=== PATIENT | female | born 1975 | race Caucasian/White ===

== ENCOUNTER 2020-02-05 09:48 | Outpatient (REF) | payer OTHER, SELFPAY | END 2020-02-05 09:49 | disposition home or self-care (01) | LOC: HO.LAB 09:48 | PROVIDERS: PCP Internal Medicine; Visit Provider Internal Medicine | DX: Z20.828 Contact with and (suspected) exposure to other viral communicable diseases (principal) | CPT/HCPCS: 36415; 87635 ==

== ENCOUNTER 2020-09-20 15:47 | Outpatient (REF) | payer OTHER, SELFPAY ==
--- NOTE | ~2020-09-20 | XR_ITS ---
EXAMINATION: XR HIP, RIGHT CLINICAL INFORMATION: Right hip pain COMPARISON: None TECHNIQUE: Two views of the right hip. FINDINGS: Bones and soft tissues are normal. No fracture. Alignment is anatomic. Hip joint space is maintained. XR/XR hip RT min 2V IMPRESSION: Normal right hip.
== END 2020-09-20 15:48 | disposition home or self-care (01) ==
LOC: HO.XRAY 15:47
PROVIDERS: Visit Provider Internal Medicine
DX: M25.551 Pain in right hip (principal)
CPT/HCPCS: 73502

== ENCOUNTER 2023-04-25 15:17 | Outpatient (REF) | payer OTHER, SELFPAY ==
--- NOTE | ~2023-04-25 | US_ITS ---
EXAMINATION: US RETROPERITONEAL COMPLETE (RENAL) CLINICAL INFORMATION: Renal cyst. COMPARISON: None available. TECHNIQUE: Real-time imaging of the kidneys and bladder. FINDINGS: RIGHT KIDNEY: 10.1 x 4.7 x 5.2 cm (SAG x AP x TRV). The kidney is normal in size, contour, and echogenicity. Renal cortical thickness is normal. No renal calculi or hydronephrosis. Question upper pole mass with a faintly echogenic center and thin hypoechoic rim measuring 1.4 x 1.2 x 1.5 cm. LEFT KIDNEY: 10.4 x 4.8 x 5.2 cm (SAG x AP x TRV). The kidney is normal in size, contour, and echogenicity. Renal cortical thickness is normal. No calculi or focal parenchymal lesions. There is slight fullness of a lower pole calyx without flor hydronephrosis. BLADDER: Well distended and normal. Bilateral ureteral jets are demonstrated. Prevoid bladder volume is 163 mL. Postvoid bladder volume is 1.6 mL. ADDITIONAL FINDINGS: A few punctate calcifications within the spleen likely representing calcified granulomas indicative of old granulomatous disease. US/US retroperitoneal comp IMPRESSION: 1. Question of 1.5 cm mass in the upper pole of the right kidney. CT scan is recommended for further evaluation. 2. Slight fullness of a lower pole calyx in the left kidney without flor hydronephrosis. 3. Normal appearance of the bladder. 4. A few punctate calcifications within the spleen likely representing calcified granulomas indicative of old granulomatous disease.
== END 2023-04-25 15:18 | disposition home or self-care (01) ==
LOC: HO.US 15:17
PROVIDERS: PCP Internal Medicine; Visit Provider Internal Medicine
DX: N28.1 Cyst of kidney, acquired (principal)
CPT/HCPCS: 76770

== ENCOUNTER 2023-05-17 15:02 | Outpatient (AMB) | payer OTHER, SELFPAY ==
--- NOTE | 2023-05-17 15:11 | HO.NEPHOV_ITS ---
HPI HPI Comments History of Present Illness Details I had the privilege of seeing Ofelia in consultation for a renal cyst. She was known to have renal cyst in the past but has not had any follow- up for a long time. She denies any unintentional weight loss, night sweats, hematuria, dysuria, flank pain, passing of blood clots in the urine or nephrolithiasis. She has lost a lot of weight using wegovy. Her blood pressure has been normal now. She is not known to have any proteinuria. There is no family history of cystic renal disease, ESRD or renal transplantation. Currently she feels well. [facility] Medical History (Updated 05/18/23 @ 09:37 by Raymond Rodrigez MD) Mild sleep apnea Insomnia Anxiety IBS (irritable bowel syndrome) Hyperlipidemia Fibromyalgia Elevated blood pressure reading Surgical History History of appendectomy History of tubal ligation Family History Father CKD (chronic kidney disease) Prostate cancer Social History (Updated 05/17/23 @ 15:22 by Yoli Miles) Alcohol intake: current Comment: on occasional Patient Tobacco Use Status: Former Tobacco user Use of substances other than those prescribed or required for medical reasons: No Vital Signs 05/17/23 15:12 Weight 152 lb 4 oz BP 122/84 Blood Pressure Location Lt brachial Position Sitting Pulse 57 Pulse Source Pulse Oximeter Pulse Oximetry (%) 98 Oxygen Delivery Method Room Air Physical Exam Vital Signs: Last Vital Signs Pulse 57 05/17/23 15:12 BP 122/84 05/17/23 15:12 Pulse Ox 98 05/17/23 15:12 Oxygen Delivery Method Room Air 05/17/23 15:12 Const General: comfortable and no acute distress Orientation/consciousness: patient oriented x3 HEENT Head: Yes normocephalic Mouth: Normal oral and palatal mucosa present Eyes EOM: EOMs intact bilaterally Neck Neck: Yes supple Resp Auscultation: clear to auscultation bilaterally Cardio Jugular venous distension: no JVD Rate: regular rate GI Palpation (GI): Soft to palpation Auscultation: normal bowel sounds General: Yes no CVA tenderness Back/Spine/Pelvis Back: no CVA tenderness Skin General skin exam: no rashes or lesions noted Neuro General: patient oriented x3 and moves all extremities Extrem General: Yes no pedal edema Assessment & Plan Assessment & Plan (1) Renal cyst: Code(s): N28.1 - Cyst of kidney, acquired Plan Ofelia is known to have renal cyst in the past but has not had any follow-up until recently. She underwent an imaging recently which did not show any incr ease in size. She never had infection of the cyst, bleeding in the cyst or rupture of the cyst. It was never mentioned that she has a complex cyst. She has no family history of cystic renal disease, ESRD or renal transplantation. Her blood pressure is currently normal. She is not known to have any hematuria or proteinuria. Her serum creatinine is normal. I reassured her and discussed her current Imaging in comparison with the previous years ago. I will see her in a year's time during which I will get a more detailed imaging for follow-up along with blood work and urine studies. Answered all questions. Follow-up appointment given. Coding Level of Care Code New Pt Level 4 (43907) Diagnoses Renal cyst N28.1 Results Reviewed Nephrology Results: Hgb 14.4 g/dL (12.0-16.0) 06/13/18 WBC 8.5 X10*3/uL (4.8-10.8) 06/13/18 Plt Count 172 X10*3/uL (160-400) 06/13/18 Sodium 137 MMOL/L (135-145) 06/13/18 Potassium 4.0 MMOL/L (3.3-5.1) 06/13/18 Chloride 103 MMOL/L (96-108) 06/13/18 BUN 10 MG/DL (9-16) 06/13/18 Creatinine 0.82 MG/DL (0.5-1.4) 06/13/18 Calcium 9.1 MG/DL (8.4-10.2) 06/13/18 Urine Protein NEG (NEG - TRACE) 06/13/18
[2023-05-17 15:12] VITALS: BP 122/84; PULSE 57; O2SAT 98
== END 2023-05-17 15:44 | disposition home or self-care (01) ==
PROVIDERS: PCP Internal Medicine; Visit Provider Internal Medicine Nephrology
DX: N28.1 Cyst of kidney, acquired (principal)
CPT/HCPCS: 99204

== ENCOUNTER → 2023-05-17 15:02 | Outpatient (BNVA) | payer OTHER, SELFPAY | PROVIDERS: PCP Internal Medicine; Visit Provider Internal Medicine Nephrology ==

== ENCOUNTER 2023-07-08 09:39 | Outpatient (REF) | payer OTHER, SELFPAY ==
[2023-07-08 09:55] LABS: MANUAL DIFF FLAG NO
[2023-07-08 10:57] LABS: Basophils Percent Auto 0.5 % (0-2); Eosinophils Absolute Auto 0.1 X10*3/uL (0.0-0.4); Hematocrit 35.4 % (37.0-47.0); Imm Gran Abs Auto 0.01 X10*3/uL (0.00-0.03); Imm Gran Pct Auto 0.2 % (0.0-0.4); Lymphocytes Absolute Auto 1.7 X10*3/uL (1.2-4.9); Lymphocytes Percent Auto 28.4 % (20-40); Mean Corpuscular HGB Conc 31.1 g/dl (31.0-35.0); Mean Corpuscular Hemoglobin 24.2 pg (27.0-33.0); Mean Corpuscular Volume 77.8 fL (80.0-98.0); Monocytes Absolute Auto 0.3 X10*3/uL (0.1-1.2); Monocytes Percent Auto 5.1 % (2-11); Neutrophils Absolute Auto 3.9 x10*3/uL (2.0-8.3); Neutrophils Percent Auto 64.8 % (45-73); Platelet Count 165 X10*3/uL (160-400); Red Blood Count 4.55 X10*6/uL (4.20-5.50); Red Cell Distribution Width 19.6 % (11.0-16.0)
[2023-07-08 10:58] LABS: Estimated Average Glucose 97 mg/dL
[2023-07-08 11:34] LABS: Alanine Aminotransferase 13 U/L (0-31); Albumin Level 4.2 g/dL (3.5-5.0); Alkaline Phosphatase 77 U/L (39-117); Anion Gap 12 (12-20); Aspartate Amino Transferase 20 U/L (5-31); Bilirubin Total 0.3 mg/dL (0.0-1.0); Blood Urea Nitrogen 15 mg/dL (9-16); Calcium 9.3 mg/dL (8.4-10.2); Carbon Dioxide 25 mmol/L (22-29); Chloride 109 mmol/L (96-108); Cholesterol 222 mg/dL (<200); Estimated Glomerular Filt Rate > 60; Glucose Random 97 mg/dL (60-115); HDL Cholesterol 30 mg/dL (>40); LDL Cholesterol Calculated 146 mg/dL (<100); Potassium 4.1 mmol/L (3.3-5.1); Sodium 142 mmol/L (135-145); Total Protein 6.9 g/dL (6.5-8.0); Triglycerides 234 mg/dL (<150)
[2023-07-08 11:41] LABS: Thyroid Stimulating Hormone 0.86 uIU/mL (0.32-4.0)
== END 2023-07-08 09:40 | disposition home or self-care (01) ==
LOC: HO.LAB 09:39
PROVIDERS: PCP Nurse Practitioner Adult Health; Visit Provider Nurse Practitioner Adult Health
DX: Z00.00 Encounter for general adult medical examination without abnormal findings (principal); Z13.6 Encounter for screening for cardiovascular disorders; F90.9 Attention-deficit hyperactivity disorder, unspecified type
CPT/HCPCS: 36415; 80053; 80061; 83036; 84443; 85025

== ENCOUNTER 2024-04-17 09:38 | Outpatient (AMB) | payer OTHER, SELFPAY ==
--- NOTE | 2024-04-17 09:47 | A.OFFVIS_ITS ---
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 Industrial Security Analyst Required: No Industrial Security Analyst Services: Industrial Security Analyst Present Information Interpreted: clinical only Manager Of Selection And Assessment: Manager Of Selection And Assessment Present Allergies penicillin V Allergy (Unknown, Verified 04/17/24 09:48) Unknown Sulfa (Sulfonamide Antibiotics) Allergy (Unknown, Verified 04/17/24 09:48) Unknown tetracycline Allergy (Unknown, Verified 04/17/24 09:48) Unknown Amoxil Allergy (Unknown, Uncoded 04/17/24 09:48) Unknown Clindamycin HCl Allergy (Unknown, Uncoded 04/17/24 09:48) Unknown Erythromycin Allergy (Unknown, Uncoded 04/17/24 09:48) Unknown Transderm-Scop Allergy (Unknown, Uncoded 04/17/24 09:48) Unknown Medication List - Last Reconciled 04/17/24 by Asya Gutierrez CNM semaglutide (weight loss) (Wegovy) 0.25 mg subcut QWEEK Is last menstrual period known: Yes Last menstrual period: 02/05/24 HPI 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 Been a few years since she has had a Pap smear her primary care provider used to do them and she was not having any problems so when they stops doing them she did not pursue it. She has some other health concerns that she manages such as fibromyalgia and Raynaud's she mentions them symptomatically it is mainly if she gets cold feed the Raynaud's acts up in her feet. She has been running hot more than having hot flashes and she has had other symptoms that she thought were menopausal and she had asked her primary care provider to do lab work. There is record of previous visit from her primary but no records of the labs and call placed to obtain them did not result arrival of records while the patient was here. She says the all of the levels done in the spring were in the menopausal range however she was still getting regular menses and in fact was getting them up through the beginning of this past February (it is now April) She has 5 children she had her tubes tied after the of her 3rd and then she later met her and they decided to have more children and she had twins via IVF, at [facility]. [facility] Medical History Mild sleep apnea Insomnia Anxiety IBS (irritable bowel syndrome) Hyperlipidemia Fibromyalgia Elevated blood pressure reading Surgical History History of appendectomy History of tubal ligation Family History Father CKD (chronic kidney disease) Prostate cancer Social History Alcohol intake: current Comment: on occasional Patient Tobacco Use Status: Former Tobacco user Female Reproductive History Menstrual Age of Menarche: 16 Duration of menses: <3 days Date of last menstrual period: 02/05/24 control method: permanent sterilization Total pregnancies: 5 Full term: 5 Multiple births: 2 History of abnormal pap smear: No (unknown date previous pap) Physical Exam Vital Signs: Last Vital Signs BP 118/70 04/17/24 09:48 BMI result Body Mass Index 33.3 Const General: healthy appearing, comfortable, no acute distress, well developed and alert Nutritional Appearance: average body habitus Orientation/consciousness: patient oriented x3 Limitations: no limitations HEENT Head: Yes normocephalic Neck Neck: Yes normal visual inspection Chest Chest palpation & inspection: normal inspection of the chest Breast/axilla inspection: normal inspection of the breasts and normal inspection of the axillae Breast/axilla palpation: normal palpation of the breasts and normal palpation of the axillae Resp Effort & Inspection: normal respiratory effort GI Inspection: Yes normal to inspection, No Abdominal wall edema and No distended Palpation (GI): Soft to palpation and nontender Other: Exam very and moist healthy clear appearing normal discharge vaginal mucosa well estrogenized, cervix multiparous pink smooth mobile nontender friable with Pap smear. Uterus small midposition to anteverted mobile nontender nonenlarged adnexa nonenlarged nontender somewhat weak tone with Kegel able to gradually increase strength with increased practice during exam. Instructed on doing Kegel's with increasing strength several times a day. General: Yes bladder normal to palpation External Female Exam: normal external appearance and normal appearance of the urethra Speculum Exam - Vagina: normal appearance of the vagina, normal palpation and normal vaginal discharge Speculum Exam - Cervix: normal appearance of the cervix, normal palpation and n ontender Bimanual exam- vagina & uterus: normal bimanual exam, normal palpation, uterine size normal, bladder normal to palpation, consistency normal, normal palpation, uterine mobility normal, uterine shape normal, No Cervical tenderness present, non-tender and no cervical motion tenderness Bimanual Exam- Adnexa, other: normal adnexae, no masses, normal and No adnexal tenderness Neuro General: patient oriented x3 Results Reviewed Results Reviewed: Reviewed referral that arrived after the patient had arrived and was already in the room. There is reference made to hormonal levels that were drawn earlier in the year but they are not in the records that were received call was placed to receive them but they had not arrived by the time the end of the visit was over. Assessment & Plan Assessment & Plan (1) Breast cancer screening: Code(s): Z12.39 - Encounter for other screening for malignant neoplasm of breast Category: Medical (2) Cervical cancer screening: Code(s): Z12.4 - Encounter for screening for malignant neoplasm of cervix Category: Medical (3) Encounter for screening examination for sexually transmitted disease: Code(s): Z11.3 - Encounter for screening for infections with a predominantly sexual mode of transmission Category: Medical (4) Well woman exam with routine gynecological exam: Code(s): Z01.419 - Encounter for gynecological examination (general) (routine) without abnormal findings Category: Medical (5) Perimenopausal symptoms: Code(s): N95.1 - Menopausal and female climacteric states Category: Medical Plan -----Discussed in this visit the following: healthy balanced diet, regular and consistent exercise, getting recommended health screens, doing the best she can for her particular health concerns, kegel exercises, pap smear screening and followup recommendations, mammography screening and SBE, normal changes in cycles in her life stage--- .---Discussed normal changes that happen premenapausally, perimenapausally, and postmenopausally, and ways to handle them. Discussed the normal variation, and the range of experiences that women experience. Discuss the normal changes that happen with vaginal mucosal thinning and sensitivity, and simple more natural ways of handling these challenges. While she is feeling like she runs hot all the time and she was complaining of menopausal symptoms more earlier in the year she has been getting regular periods up until the beginning of February so she is only missed 1-1/2 periods so far. She is not experiencing any vaginal dryness at all. Discussed that normally would not bother checking FSH until it had been a year with no menses. Discussed that it is not likely that she has all the way through menopause yet , and that symptoms can wax and wane over time. She believes in getting screened for everything regularly so testing ordered for STI screens. Also I have ordered her mammogram as it has been a couple of years. She gets the semaglutide online not prescribe but she does follow with her primary care provider and gets regular blood work screening for cholesterol etc. She manages other issues such as fibromyalgia and Raynaud's symptomatically and avoids extreme temperature changes such as cold. Labs ordered mammogram ordered see her in 1 year she is on the portal but does have difficulty getting into it and will work on that. Orders: Orders MM tomosynthesis screening BI Today N95.1 - Menopausal and female climacteric states, Z01.419 - Encounter for gynecological examination (general) (routine) without abnormal findings, Z11.3 - Encounter for screening for infections with a predominantly sexual mode of transmission, Z12.31 - Encounter for screening mammogram for malignant neoplasm of breast, Z12.39 - Encounter for other screening for malignant neoplasm of breast, Z12.4 - Encounter for screening for malignant neoplasm of cervix Coding Level of Care Code New Pt Prev Care 40-64y(99771) Diagnoses Breast cancer screening Z12.39 Cervical cancer screening Z12.4 Encounter for screening examination for sexually transmitted disease Z11.3 Well woman exam with routine gynecological exam Z01.419 Perimenopausal symptoms N95.1
[2024-04-17 09:48] VITALS: BP 118/70; BMI 33.3
== END 2024-04-17 11:41 | disposition home or self-care (01) ==
PROVIDERS: PCP Nurse Practitioner Adult Health; Visit Provider Advanced Practice Midwife
DX: Z01.419 Encounter for gynecological examination (general) (routine) without abnormal findings (principal); N95.1 Menopausal and female climacteric states
CPT/HCPCS: 99386; 99459

== ENCOUNTER 2024-04-17 09:38 | Outpatient (REF) | payer OTHER, SELFPAY ==
[2024-04-18 02:53] LABS: CT PCR NOT DETECTED (Not Detect.); NG PCR NOT DETECTED (Not Detect.)
[2024-04-18 09:33] LABS: Bacterial Vaginosis PCR POSITIVE (Negative); Candida Group PCR NOT DETECTED (Not Detect); Candida glab krusei PCR NOT DETECTED (Not Detect); Trichomonas vaginalis PCR NOT DETECTED (Not Detect)
== END 2024-04-17 09:39 | disposition home or self-care (01) ==
LOC: HO.LAB 09:38
PROVIDERS: PCP Nurse Practitioner Adult Health; Visit Provider Advanced Practice Midwife
DX: N89.8 Other specified noninflammatory disorders of vagina (principal); Z20.2 Contact with and (suspected) exposure to infections with a predominantly sexual mode of transmission
CPT/HCPCS: 0352U; 87491; 87591

== ENCOUNTER 2024-04-17 11:14 | Outpatient (REF) | payer OTHER, SELFPAY ==
[2024-04-20 10:42] LABS: HPV 16,18/45 See PAP report
== END 2024-04-17 11:15 | disposition home or self-care (01) ==
LOC: HO.LNP 11:14
PROVIDERS: Visit Provider Advanced Practice Midwife
DX: Z01.419 Encounter for gynecological examination (general) (routine) without abnormal findings (principal); N89.8 Other specified noninflammatory disorders of vagina; Z20.2 Contact with and (suspected) exposure to infections with a predominantly sexual mode of transmission
CPT/HCPCS: 87624; 88175

== ENCOUNTER 2024-04-21 18:31 | Emergency (ER) | payer OTHER, SELFPAY ==
--- NOTE | ~2024-04-21 | XR_ITS ---
EXAMINATION: XR CHEST CLINICAL INFORMATION: pain COMPARISON: None available. TECHNIQUE: 2 views of the chest were obtained. FINDINGS: No significant abnormality is noted involving the heart, lungs, mediastinum, bony thorax or soft tissues. XR/XR chest 2V IMPRESSION: Unremarkable chest examination. Electronically signed by: Gianfranco Harrison MD 04/21/2024 08:33 PM [facility]
--- NOTE | 2024-04-21 18:35 | ECG_ITS ---
Test Reason : PAIN/CHEST PAIN Blood Pressure : / mmHG Vent. Rate : 081 BPM Atrial Rate : 081 BPM P-R Int : 152 ms QRS Dur : 078 ms QT Int : 360 ms P-R-T Axes : 000 189 176 degrees QTc Int : 418 ms Sinus rhythm with marked sinus arrhythmia Right superior axis deviation Cannot rule out Anterior infarct , age undetermined T wave abnormality, consider inferior ischemia Abnormal ECG No previous ECGs available Referred By: Elia Judd Electronically Signed By:CAROLEE CLARK
[2024-04-21 18:59] VITALS: BP 153/107; PULSE 85; RESP 16; TEMP 36.5; O2SAT 99; BMI 33.1
--- NOTE | 2024-04-21 18:59 | ED.GENADULT ---
HPI - General Adult General Chief complaint: Chest Pain Stated complaint: chest pain/sob/numbness left arm Time Seen by Provider: 04/21/24 22:45 Source: patient Mode of arrival: ambulatory Limitations: no limitations History of Present Illness ED Provider: HPI narrative: Patient with no known coronary artery disease does have history of fibromyalgia and Raynaud's disease apparently was masturbating around p.m. noticed left-sided chest pain which increases on palpation and movements and taking deep breaths also felt pain in the left arm never had similar pain in the past pain is continuous since patient has 2 sets of troponin which were negative EKG without any ischemic changes chest x-ray also negative Related Data Home Medications ?Medication ?Instructions ?Recorded ?Confirmed semaglutide (weight loss) 0.25 0.25 mg subcut QWEEK 05/17/23 04/17/24 mg/0.5 mL subcutaneous pen injector (Wegovy) Allergies Allergy/AdvReac Type Severity Reaction Status Date / Time penicillin V Allergy Unknown Unknown Verified 04/21/24 19:00 Sulfa (Sulfonamide Allergy Unknown Unknown Verified 04/21/24 19:00 Antibiotics) tetracycline Allergy Unknown Unknown Verified 04/21/24 19:00 Amoxil Allergy Unknown Unknown Uncoded 04/17/24 09:48 Clindamycin HCl Allergy Unknown Unknown Uncoded 04/17/24 09:48 Erythromycin Allergy Unknown Unknown Uncoded 04/17/24 09:48 Transderm-Scop Allergy Unknown Unknown Uncoded 04/17/24 09:48 Review of Systems Review of Systems: Yes all other systems are reviewed and are negative PMFSH Past Medical History Medical History Mild sleep apnea Insomnia Anxiety IBS (irritable bowel syndrome) Hyperlipidemia Fibromyalgia Elevated blood pressure reading Surgical History History of appendectomy History of tubal ligation Family History Family History Father CKD (chronic kidney disease) Prostate cancer Social History Social History Alcohol intake: current Alcohol intake frequency: does not drink Comment: on occasional Patient Tobacco Use Status: Former Tobacco user Smoked in Last 30 Days: No Use of substances other than those prescribed or required for medical reasons: No Advance Directives: No Advance Directives Information Provided: No Do you have a plan to hurt others: No Plan Physical Exam ED Vital Signs: Vital Signs - 24 hr 04/21/24 18:59 04/21/24 23:15 04/21/24 23:17 Temperature 97.7 F 98.5 F 98.5 F Pulse Rate 85 63 63 Respiratory Rate 16 16 16 Blood Pressure 153/107 H 141/85 H 141/85 H Pulse Oximetry 99 98 98 Oxygen Delivery Method Room Air Room Air Room Air BMI result Body Mass Index 33.1 Appearance: Alert. Oriented X3. No acute distress. Eyes: No pallor or icterus ENT: Pharynx normal. Oral Mucosa moist Neck: Normal inspection. Neck supple. CVS: Normal heart rate and rhythm. Pulses normal. Respiratory: No respiratory distress. Equal air entry bilateral, no wheezing/rales/rhonchi tenderness left 2nd intercostal space Abdomen: Soft and nontender. Bowel sounds are present, no mass palpable, no CVA tenderness Skin: Skin warm and dry. Normal skin color. Normal skin turgor. Extremities: No lower extremity edema. No calf tenderness Neuro: Oriented X 3. No motor deficit. Course Course Course Narrative: RME, this is a rapid medical exam performed by Manohar Judd please refer to primary provider for complete H&P- 48 year old female presents for evaluation of chest pain and shortness of breath that started while she was masturbating. She complains of 7/10 midsternal chest pain. Her pain is waxing and waning in intensity. Plan for cardiac workup. Medications Administered Discontinued Medications Generic Name Dose Route Start Last Admin Trade Name Aakash PRN Reason Stop Dose Admin Ibuprofen 600 mg 04/21/24 23:03 04/21/24 23:11 Ibuprofen 600 Mg Tablet PO 04/21/24 23:04 600 mg ONCE ONE Administration Medical Decision Making Medical Decision Making [facility] Narrative: Patient with left-sided chest pain reproducible clinically costochondritis 2 sets of cardiac enzymes negative no prior coronary artery disease advised patient follow with PCP Differential Diagnosis Differential Diagnoses: The differential diagnosis associated with the presentation includes Lab Data [facility] Lab Attestation statement: I reviewed the patient's lab results. 04/21/24 19:13 04/21/24 19:13 Labs: Lab Results 04/21/24 04/21/24 Range/Units 19:13 20:53 WBC 7.5 (4.8-10.8) X10*3/uL RBC 5.06 (4.20-5.50) X10*6/uL Hgb 14.0 D (12.0-16.0) g/dl Hct 42.6 D (37.0-47.0) % MCV 84.2 (80.0-98.0) fL MCH 27.7 (27.0-33.0) pg MCHC 32.9 (31.0-35.0) g/dl RDW 15.8 (11.0-16.0) % Plt Count 191 (160-400) X10*3/uL MPV 11.8 (9.4-12.3) fL Immature Gran % (Auto) 0.3 (0.0-0.4) % Neut % (Auto) 62.0 (45-73) % Lymph % (Auto) 29.3 (20-40) % [place] % (Auto) 6.1 (2-11) % Eos % (Auto) 1.9 (0-4) % Baso % (Auto) 0.4 (0-2) % Lymph # (Auto) 2.2 (1.2-4.9) X10*3/uL [place] # (Auto) 0.5 (0.1-1.2) X10*3/uL Eos # (Auto) 0.1 (0.0-0.4) X10*3/uL Baso # (Auto) 0.0 (0.0-0.2) X10*3/uL Abs Immat Gran (auto) 0.02 (0.00-0.03) X10*3/uL Absolute Neuts (auto) 4.7 (2.0-8.3) x10*3/uL Absolute Nucleated RBC 0.000 (0.0-0.012) X10*3/uL Nucleated RBC % (auto) 0.0 (0.0-0.2) /100WBC PT 11.3 (10.9-12.4) SEC INR 1.0 (0.9-1.1) Sodium 141 (135-145) mmol/L Potassium 4.0 (3.3-5.1) mmol/L Chloride 105 (96-108) mmol/L Carbon Dioxide 31 H (22-29) mmol/L Anion Gap 9 L (12-20) BUN 14 (9-16) mg/dL Creatinine 1.09 (0.5-1.4) mg/dL Estim Creat Clear Calc 59.5 Estimated GFR 53 Random Glucose 83 (60-115) mg/dL Calcium 9.7 (8.4-10.2) mg/dL Total Bilirubin 0.5 (0.0-1.0) mg/dL AST 25 (5-31) U/L ALT 20 (0-31) U/L Alkaline Phosphatase 95 (39-117) U/L Troponin I High Sens 5.8 6.2 (<3.5-17.0) ng/L Total Protein 7.4 (6.5-8.0) g/dL Albumin 4.5 (3.5-5.0) g/dL Lipase 18 (8-78) U/L Independent Interpretation I performed an independent interpretation of an: EKG Interpretation: Normal sinus rhythm heart rate 81 beats per minute normal interval right-sided axis no acute ST-T changes no acute ischemia Radiology Impression Discussion of test interpretation with radiology: I have reviewed the radiologist's reading. Radiologist Impression: NAD Discharge Plan Discharge Clinical Impression: Costalchondritis Patient Disposition: Home, Self-Care Instructions: Costochondritis (ED) Additional Instructions: Take ibuprofen for pain Follow with your PCP if pain continue for further workup At this time there is no evidence of cardiac injury Prescriptions: No Action Wegovy 0.25 mg/0.5 mL pen injector 0.25 mg subcut QWEEK Rx Instructions: administer weeks 1 through 4 of therapy Interventions: ED Discharge Assessment Last Done: 04/21/24 23:17 Discharge Date/Time: 04/21/24 23:17 Print Language: Romansh
[2024-04-21 19:19] LABS: MANUAL DIFF FLAG NO
[2024-04-21 19:20] LABS: Basophils Percent Auto 0.4 % (0-2); Eosinophils Absolute Auto 0.1 X10*3/uL (0.0-0.4); Eosinophils Percent Auto 1.9 % (0-4); Hematocrit 42.6 % (37.0-47.0); Imm Gran Abs Auto 0.02 X10*3/uL (0.00-0.03); Imm Gran Pct Auto 0.3 % (0.0-0.4); Lymphocytes Absolute Auto 2.2 X10*3/uL (1.2-4.9); Lymphocytes Percent Auto 29.3 % (20-40); Mean Corpuscular HGB Conc 32.9 g/dl (31.0-35.0); Mean Corpuscular Hemoglobin 27.7 pg (27.0-33.0); Mean Corpuscular Volume 84.2 fL (80.0-98.0); Mean Platelet Volume 11.8 fL (9.4-12.3); Monocytes Absolute Auto 0.5 X10*3/uL (0.1-1.2); Monocytes Percent Auto 6.1 % (2-11); Neutrophils Absolute Auto 4.7 x10*3/uL (2.0-8.3); Platelet Count 191 X10*3/uL (160-400); Red Blood Count 5.06 X10*6/uL (4.20-5.50); Red Cell Distribution Width 15.8 % (11.0-16.0); White Blood Count 7.5 X10*3/uL (4.8-10.8)
[2024-04-21 19:33] LABS: Prothrombin Time 11.3 SEC (10.9-12.4)
[2024-04-21 19:34] LABS: Alanine Aminotransferase 20 U/L (0-31); Albumin Level 4.5 g/dL (3.5-5.0); Alkaline Phosphatase 95 U/L (39-117); Anion Gap 9 (12-20); Aspartate Amino Transferase 25 U/L (5-31); Bilirubin Total 0.5 mg/dL (0.0-1.0); Blood Urea Nitrogen 14 mg/dL (9-16); Calcium 9.7 mg/dL (8.4-10.2); Carbon Dioxide 31 mmol/L (22-29); Chloride 105 mmol/L (96-108); Creatinine Clr Calc Pharmacy 59.5; Estimated Glomerular Filt Rate 53; Glucose Random 83 mg/dL (60-115); Lipase 18 U/L (8-78); Sodium 141 mmol/L (135-145); Total Protein 7.4 g/dL (6.5-8.0)
[2024-04-21 19:42] LABS: Troponin-I High Sensitivity 5.8 ng/L (<3.5-17.0)
[2024-04-21 21:20] LABS: Troponin-I High Sensitivity 6.2 ng/L (<3.5-17.0)
[2024-04-21] MEDS: Ibuprofen 600 MG TABLET PO (23:11)
[2024-04-21 23:15] VITALS: BP 141/85; PULSE 63; RESP 16; TEMP 36.9; O2SAT 98
[2024-04-21 23:17] VITALS: BP 141/85; PULSE 63; RESP 16; TEMP 36.9; O2SAT 98
== END 2024-04-21 23:17 | disposition home or self-care (01) ==
PROVIDERS: Physician Assistant; Emergency Provider Internal Medicine; PCP Nurse Practitioner Adult Health
DX: M94.0 Chondrocostal junction syndrome [Tietze] (principal); R07.89 Other chest pain; R20.0 Anesthesia of skin; Z79.899 Other long term (current) drug therapy
CPT/HCPCS: 36415; 71046; 80053; 83690; 84484; 85025; 85610; 93005; 99283; 99285

== ENCOUNTER → 2024-04-21 18:35 | Outpatient (BNV) | payer OTHER, SELFPAY | PROVIDERS: Emergency Provider Internal Medicine; PCP Nurse Practitioner Adult Health; Visit Provider Internal Medicine | DX: R07.9 Chest pain, unspecified (principal); I49.8 Other specified cardiac arrhythmias; R94.31 Abnormal electrocardiogram [ECG] [EKG] | CPT/HCPCS: 93010 ==

== ENCOUNTER 2024-04-23 18:05 | Emergency (ER) | payer OTHER, SELFPAY ==
--- NOTE | 2024-04-23 | ECG_ITS ---
Test Reason : chest pain Blood Pressure : / mmHG Vent. Rate : 068 BPM Atrial Rate : 068 BPM P-R Int : 162 ms QRS Dur : 076 ms QT Int : 384 ms P-R-T Axes : 041 -07 006 degrees QTc Int : 408 ms Normal sinus rhythm Minimal voltage criteria for LVH, may be normal variant ( R in aVL ) Cannot rule out Anterior infarct (cited on or before 21-APR-2024) Abnormal ECG When compared with ECG of 21-APR-2024 18:51, QRS axis Shifted right Referred By: Generic ED Physician Electronically Signed By:CAROLEE CLARK
--- NOTE | ~2024-04-23 | XR_ITS ---
CLINICAL HISTORY: CP 2 view chest x-ray Comparison: CR/SR - XR CHEST 2V - 04/21/2024 07:20 PM EST Findings: The lungs are clear. Normal size heart. No acute fracture. IMPRESSION: 1. No acute findings. This document has been electronically signed by: Duran Gomez MD on 04/23/2024 19:30:46
[2024-04-23 18:21] VITALS: BP 164/86; PULSE 73; RESP 18; TEMP 36.3; O2SAT 99; BMI 32.1
--- NOTE | 2024-04-23 18:24 | ED_ITS ---
HPI - Chest Pain General Chief Complaint: Chest Pain Stated Complaint: Chest pain Time Seen by Provider: 04/23/24 19:32 Source: patient and EMS Mode of arrival: EMS Limitations: no limitations History of Present Illness ED Provider: Brie Blevins NP HPI narrative: Patient is a 48-year-old female who presents emergency department for evaluation of persistent substernal chest pain radiating to the left arm and back. Onset was 3 days ago. Admits that she was seen in the emergency department 2 days ago was advised that she had costochondritis, has been taking ibuprofen 600 mg 3 times daily without improvement. She states that she was concerned today because while sitting at work at 14:00 she began experiencing palpitations associated with the chest pain. She does admit to having a history of anxiety as well as a chronic chest pain but she states that this pain does feel different than what she has experienced in the past. She admits to a COVID-19 infection approximately 3 weeks ago, has had resolution of symptoms including the cough. She was unable to get a follow-up appointment her primary care doctor until 05/01/2024 therefore she was concerned and wanted to have re- evaluation. Related Data Home Medications ?Medication ?Instructions ?Recorded ?Confirmed semaglutide (weight loss) 0.25 0.25 mg subcut QWEEK 05/17/23 04/17/24 mg/0.5 mL subcutaneous pen injector (Wegovy) Previous Rx's ?Medication ?Instructions ?Recorded naproxen 500 mg tablet 500 mg PO BID PRN pain #10 tabs 04/23/24 Allergies Allergy/AdvReac Type Severity Reaction Status Date / Time penicillin V Allergy Unknown Unknown Verified 04/23/24 18:26 Sulfa (Sulfonamide Allergy Unknown Unknown Verified 04/23/24 18:26 Antibiotics) tetracycline Allergy Unknown Unknown Verified 04/23/24 18:26 Amoxil Allergy Unknown Unknown Uncoded 04/17/24 09:48 Clindamycin HCl Allergy Unknown Unknown Uncoded 04/17/24 09:48 Erythromycin Allergy Unknown Unknown Uncoded 04/17/24 09:48 Transderm-Scop Allergy Unknown Unknown Uncoded 04/17/24 09:48 Review of Systems 2 Review of Systems: Yes all other systems are reviewed and are negative PMFSH Past Medical History Attestation statement: The following information was validated with the patient. Source: old records reviewed Medical History Mild sleep apnea Insomnia Anxiety IBS (irritable bowel syndrome) Hyperlipidemia Fibromyalgia Elevated blood pressure reading Surgical History History of appendectomy History of tubal ligation Family History Family History Father CKD (chronic kidney disease) Prostate cancer Social History Social History Alcohol intake: current Alcohol intake frequency: does not drink Comment: on occasional Patient Tobacco Use Status: Former Tobacco user Advance Directives: No Advance Directives Information Provided: No Do you have a plan to hurt others: No Plan Physical Exam 2 Vital Signs: Vital Signs: Last Vital Signs Temp 97.3 F 04/23/24 18:21 Pulse 64 04/23/24 19:57 Resp 15 04/23/24 19:57 BP 134/81 04/23/24 19:57 Pulse Ox 96 04/23/24 19:57 O2 Del Method Room Air 04/23/24 19:57 BMI result Body Mass Index 32.1 Appearance: Alert.?Oriented to person, place and time. No acute distress.?Normal affect. Eyes: Pupils equal, round and reactive to light.? ENT: Pharynx normal.?? Neck: Normal inspection.? Neck supple.??No JVD. CVS: Heart sounds normal. Normal heart rate and rhythm.? Pulses normal.?? Respiratory: No respiratory distress.? Lung sounds clear to auscultation bilaterally?? Abdomen: Soft and non-tender. Normoactive bowel sounds. No pulsatile mass.?? Skin: Skin warm and dry.? Normal skin color.? ?? Extremities: No lower extremity edema.? No calf ttp? Neuro: Moves all extremities spontaneously. Sensation intact bilaterally. Ambulates with normal steady gait. Course Course Course Narrative: This is a Rapid Medical Examination (RME) performed by Benito Bell PA-C in triage. Full HPI, ROS, assessment and treatment plan per primary provider in the Main ED. 48 yo female with history of fibromylagia, raynauds syndrome who presents to the ER for evaluation of constant sternal chest pain that radiates to left arm and back for the last 3 days. palpitations started today at 2pm while sitting at work. feels like heart is racing. seen here saturday night and had negative trop x2 and sent home with dx costochondritis. taking 600 advil tid with no improvement. HR 70s in triage. reports anxiety and chronic chest pain but this feels different. also endorses headaches. seeing pcp on 05/01. Plan: labs, cxr, ekg Medical Decision Making Medical Decision Making MDM Narrative: Patient is a 48-year-old female with past medical history of fibromyalgia, hyperlipidemia, anxiety, Raynaud's who presents emergency department for evaluation of persistent substernal/left-sided chest pain radiating to the left arm as per HPI. Of note she was seen in the emergency department 04/21/2024 with similar symptoms as well, she had EKG and 2 sets of cardiac enzymes which were negative. She has no prior history of coronary artery disease. Today her pain remains consistent with her prior visit the only new finding was the palpitations. Overall she appears well, nontoxic, afebrile. PERC score is negative, however given her recent COVID-19 infection, D-dimer was obtained and is <150, making pulmonary embolism unlikely. LS CTA, no tachypnea hypoxia or increased work of breathing. Low suspicion for pneumonia, CXR is without consolidation or infiltrate. No recent trauma or injury, no evidence of pneumothorax. I do suspect that her pain is consistent with costochondritis, we discussed alternative NSAID. No abdominal tenderness upon palpation, negative Daniel sign, unlikely acute cholecystitis, choledocholithiasis, no fever or jaundice to suggest acute cholangitis, may possibly be biliary colic secondary to cholelithiasis. Denies associated acid reflux, no tenderness upon palpation over the epigastrium or left upper quadrant to suggest gastritis, no recent hematemesis history less likely to suggest PUD. Denies excessive alcohol consumption, history of diabetes, lower suspicion acute pancreatitis. Differential Diagnosis Differential Diagnoses: The differential diagnosis associated with the presentation includes (See narrative above) Admission/Observation Consideration of admission/observation: Escalation of care including admission/observation considered (See narrative above and course narrative for further detail) Lab Data MDM Lab Attestation statement: I reviewed the patient's lab results. CBC is without leukocytosis anemia or thrombocytopenia. No electrolyte derangement. No KAYLEN. High sensitive troponin below detectable limits, given her 2-troponins on 04/21/2024 would defer delta troponin. TSH is within normal range. Viral serologies are negative. 04/23/24 19:13 04/23/24 19:13 Labs: Lab Results 04/23/24 04/23/24 04/23/24 Range/Units 18:59 19:13 20:09 WBC 8.0 (4.8-10.8) X10*3/uL RBC 4.83 (4.20-5.50) X10*6/uL Hgb 13.6 (12.0-16.0) g/dl Hct 40.6 (37.0-47.0) % MCV 84.1 (80.0-98.0) fL MCH 28.2 (27.0-33.0) pg MCHC 33.5 (31.0-35.0) g/dl RDW 15.4 (11.0-16.0) % Plt Count 164 (160-400) X10*3/uL MPV 12.1 (9.4-12.3) fL Immature Gran % (Auto) 0.4 (0.0-0.4) % Neut % (Auto) 65.7 (45-73) % Lymph % (Auto) 25.8 (20-40) % Riley % (Auto) 6.2 (2-11) % Eos % (Auto) 1.7 (0-4) % Baso % (Auto) 0.2 (0-2) % Lymph # (Auto) 2.1 (1.2-4.9) X10*3/uL Riley # (Auto) 0.5 (0.1-1.2) X10*3/uL Eos # (Auto) 0.1 (0.0-0.4) X10*3/uL Baso # (Auto) 0.0 (0.0-0.2) X10*3/uL Abs Immat Gran (auto) 0.03 (0.00-0.03) X10*3/uL Absolute Neuts (auto) 5.3 (2.0-8.3) x10*3/uL Absolute Nucleated RBC 0.000 (0.0-0.012) X10*3/uL Nucleated RBC % (auto) 0.0 (0.0-0.2) /100WBC D-Dimer High Sensitivty < 150 NG/ML Sodium 144 (135-145) mmol/L Potassium 3.9 (3.3-5.1) mmol/L Chloride 112 H (96-108) mmol/L Carbon Dioxide 22 (22-29) mmol/L Anion Gap 14 (12-20) BUN 17 H (9-16) mg/dL Creatinine 0.96 (0.5-1.4) mg/dL Estim Creat Clear Calc 66.6 Estimated GFR > 60 Random Glucose 83 (60-115) mg/dL Calcium 9.3 (8.4-10.2) mg/dL Magnesium 2.2 (1.6-2.6) mg/dL Total Bilirubin 0.5 (0.0-1.0) mg/dL Direct Bilirubin 0.1 (0.0-0.5) mg/dL AST 21 (5-31) U/L ALT 15 (0-31) U/L Alkaline Phosphatase 80 (39-117) U/L Troponin I High Sens < 2.7 D (<3.5-17.0) ng/L Total Protein 7.1 (6.5-8.0) g/dL Albumin 4.3 (3.5-5.0) g/dL TSH 1.81 (0.32-4.0) uIU/mL Influenza Type A (PCR) NEGATIVE (Negative) Influenza Type B (PCR) NEGATIVE (Negative) RSV RNA Qual (PCR) NEGATIVE (Negative) SARS-CoV-2 RNA (RT-PCR) NEGATIVE (Negative) Independent Interpretation I performed an independent interpretation of an: EKG and Plain X-Ray (See narrative above) Interpretation: Rate: 68 Rhythm:? Normal sinus rhythm Normal P waves.? Normal YONI.?? Normal QRS complex.?? ST T wave :??No ST elevation, no ST depression qTC: 408 prior studies:? 04/21/2024 The study has been interpreted contemporaneously by me. Radiology Impression Discussion of test interpretation with radiology: I have reviewed the radiologist's reading. Radiologist Impression: IMPRESSION: 1. No acute findings. External Record Review External record reviewed: Outpatient record Prescription Management I considered prescription management with: Pain Medication Chronic Conditions Patient?s care impacted by: Other (See narrative above) Discharge Plan Discharge Clinical Impression: Mannylchondritis Patient Disposition: Home, Self-Care Instructions: Costochondritis (ED) Prescriptions: New naproxen 500 mg tablet 500 mg PO BID PRN (Reason: pain) Qty: 10 0RF No Action Wegovy 0.25 mg/0.5 mL pen injector 0.25 mg subcut QWEEK Rx Instructions: administer weeks 1 through 4 of therapy Referrals: Florinda Doll DIRECTOR OF EARLY CHILDHOOD EDUCATION [Primary Care Provider] - Print Language: Kyrgyz
[2024-04-23 19:16] LABS: MANUAL DIFF FLAG NO
[2024-04-23 19:18] LABS: Basophils Percent Auto 0.2 % (0-2); Eosinophils Absolute Auto 0.1 X10*3/uL (0.0-0.4); Eosinophils Percent Auto 1.7 % (0-4); Hematocrit 40.6 % (37.0-47.0); Hemoglobin 13.6 g/dl (12.0-16.0); Imm Gran Abs Auto 0.03 X10*3/uL (0.00-0.03); Imm Gran Pct Auto 0.4 % (0.0-0.4); Lymphocytes Absolute Auto 2.1 X10*3/uL (1.2-4.9); Lymphocytes Percent Auto 25.8 % (20-40); Mean Corpuscular HGB Conc 33.5 g/dl (31.0-35.0); Mean Corpuscular Hemoglobin 28.2 pg (27.0-33.0); Mean Corpuscular Volume 84.1 fL (80.0-98.0); Mean Platelet Volume 12.1 fL (9.4-12.3); Monocytes Absolute Auto 0.5 X10*3/uL (0.1-1.2); Monocytes Percent Auto 6.2 % (2-11); Neutrophils Absolute Auto 5.3 x10*3/uL (2.0-8.3); Neutrophils Percent Auto 65.7 % (45-73); Platelet Count 164 X10*3/uL (160-400); Red Blood Count 4.83 X10*6/uL (4.20-5.50); Red Cell Distribution Width 15.4 % (11.0-16.0)
[2024-04-23 19:42] LABS: Alanine Aminotransferase 15 U/L (0-31); Albumin Level 4.3 g/dL (3.5-5.0); Alkaline Phosphatase 80 U/L (39-117); Anion Gap 14 (12-20); Aspartate Amino Transferase 21 U/L (5-31); Bilirubin Direct 0.1 mg/dL (0.0-0.5); Bilirubin Total 0.5 mg/dL (0.0-1.0); Blood Urea Nitrogen 17 mg/dL (9-16); Calcium 9.3 mg/dL (8.4-10.2); Carbon Dioxide 22 mmol/L (22-29); Chloride 112 mmol/L (96-108); Creatinine Clr Calc Pharmacy 66.6; Estimated Glomerular Filt Rate > 60; Glucose Random 83 mg/dL (60-115); Magnesium 2.2 mg/dL (1.6-2.6); Potassium 3.9 mmol/L (3.3-5.1); Sodium 144 mmol/L (135-145); Total Protein 7.1 g/dL (6.5-8.0)
[2024-04-23 19:43] LABS: Troponin-I High Sensitivity < 2.7 ng/L (<3.5-17.0)
[2024-04-23 19:43] LABS: Influenza A PCR NEGATIVE (Negative); Influenza B PCR NEGATIVE (Negative); Resp Syncy Virus RNA Qual PCR NEGATIVE (Negative); SARS COV2 PCR INHOUSE NEGATIVE (Negative)
[2024-04-23 19:56] LABS: TSH reflex Free T4 1.81 uIU/mL (0.32-4.0)
[2024-04-23 19:57] VITALS: BP 134/81; PULSE 64; RESP 15; O2SAT 96
[2024-04-23 20:32] LABS: D Dimer High Sensitivity < 150 NG/ML
[2024-04-23 22:13] VITALS: BP 134/81; PULSE 64; RESP 15; TEMP 36.9; O2SAT 96
== END 2024-04-23 22:13 | disposition home or self-care (01) ==
PROVIDERS: Nurse Practitioner Family; Physician Assistant; Emergency Provider Emergency Medicine; PCP Nurse Practitioner Adult Health
DX: M94.0 Chondrocostal junction syndrome [Tietze] (principal); Z03.818 Encounter for observation for suspected exposure to other biological agents ruled out; R05.9 Cough, unspecified; E78.5 Hyperlipidemia, unspecified
CPT/HCPCS: 0241U; 36415; 71046; 80048; 80076; 83735; 84443; 84484; 85025; 85379; 93005; 99283; 99284

== ENCOUNTER → 2024-04-23 18:10 | Outpatient (BNV) | payer OTHER, SELFPAY | PROVIDERS: Emergency Provider Emergency Medicine; PCP Nurse Practitioner Adult Health; Visit Provider Internal Medicine | DX: R07.9 Chest pain, unspecified (principal); R94.31 Abnormal electrocardiogram [ECG] [EKG] | CPT/HCPCS: 93010 ==

== ENCOUNTER → 2024-04-23 18:43 | Outpatient (BNV) | payer OTHER, SELFPAY | PROVIDERS: PCP Nurse Practitioner Adult Health; Visit Provider Nuclear Medicine | DX: R07.9 Chest pain, unspecified (principal) | CPT/HCPCS: 71046 ==

== ENCOUNTER 2024-06-12 14:55 | Outpatient (REF) | payer OTHER, SELFPAY | END 2024-06-12 14:56 | disposition home or self-care (01) | LOC: HO.MAMMO 14:55 | PROVIDERS: PCP Nurse Practitioner Adult Health; Visit Provider Nurse Practitioner Adult Health | DX: Z12.31 Encounter for screening mammogram for malignant neoplasm of breast (principal) | CPT/HCPCS: 77063; 77067 ==

== ENCOUNTER → 2024-06-12 15:15 | Outpatient (BNV) | payer OTHER, SELFPAY | PROVIDERS: PCP Nurse Practitioner Adult Health; Visit Provider Internal Medicine | DX: Z12.31 Encounter for screening mammogram for malignant neoplasm of breast (principal) | CPT/HCPCS: 77063; 77067 ==

== ENCOUNTER 2024-06-15 16:31 | Outpatient (REF) | payer OTHER, SELFPAY ==
--- NOTE | ~2024-06-15 | XR_ITS ---
XR/XR lumbar spine 2-3V IMPRESSION: Unremarkable examination of the lumbar spine. Mild to moderate degenerative change at T11-12. Electronically signed by: Baljit Lanier MD 06/16/2024 07:15 AM [facility]
--- NOTE | ~2024-06-15 | XR_ITS ---
XR/XR hip RT min 2V IMPRESSION: Unremarkable examination of the right hip. Electronically signed by: Baljit Lanier MD 06/16/2024 07:14 AM [facility]
== END 2024-06-15 16:32 | disposition home or self-care (01) ==
LOC: HO.XRAY 16:31
PROVIDERS: PCP Internal Medicine; Visit Provider Internal Medicine
DX: M54.50 Low back pain, unspecified (principal); M25.551 Pain in right hip
CPT/HCPCS: 72100; 73502

== ENCOUNTER → 2024-06-15 16:35 | Outpatient (BNV) | payer OTHER, SELFPAY | PROVIDERS: PCP Internal Medicine; Visit Provider Radiology Diagnostic Radiology | DX: M54.50 Low back pain, unspecified (principal); M25.551 Pain in right hip | CPT/HCPCS: 72100; 73502 ==

== ENCOUNTER 2024-06-26 15:17 | Outpatient (AMB) | payer OTHER, SELFPAY ==
--- NOTE | 2024-06-26 15:18 | HO.NEPHOV ---
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 She was known to have renal cyst in the past but has not had any follow-up for a long time. She denies any unintentional weight loss, night sweats, hematuria, dysuria, flank pain, passing of blood clots in the urine or nephrolithiasis. She has lost a lot of weight using wegovy. Her blood pressure has been normal now. She is not known to have any proteinuria. There is no family history of cystic renal disease, ESRD or renal transplantation. She is going to start HRT for perimenopausal symptoms. [facility] Medical History Mild sleep apnea Insomnia Anxiety IBS (irritable bowel syndrome) Hyperlipidemia Fibromyalgia Elevated blood pressure reading Surgical History History of appendectomy History of tubal ligation Family History Father CKD (chronic kidney disease) Prostate cancer Social History Alcohol intake: current Alcohol intake frequency: does not drink Comment: on occasional Patient Tobacco Use Status: Former Tobacco user Female Reproductive History Menstrual Age of Menarche: 16 Review of Systems Const All systems reviewed & are unremarkable except as noted in HPI and below Physical Exam Const General: comfortable and no acute distress Orientation/consciousness: patient oriented x3 HEENT Head: Yes normocephalic Mouth: Normal oral and palatal mucosa present Eyes EOM: EOMs intact bilaterally Neck Neck: Yes supple Resp Auscultation: clear to auscultation bilaterally Cardio Jugular venous distension: no JVD Rate: regular rate GI Palpation (GI): Soft to palpation Auscultation: normal bowel sounds General: Yes no CVA tenderness Back/Spine/Pelvis Back: no CVA tenderness Skin General skin exam: no rashes or lesions noted Neuro General: patient oriented x3 and moves all extremities Extrem General: Yes no pedal edema Results Reviewed Nephrology Results: Hgb 13.6 g/dl (12.0-16.0) 04/23/24 WBC 8.0 X10*3/uL (4.8-10.8) 04/23/24 Plt Count 164 X10*3/uL (160-400) 04/23/24 Sodium 144 mmol/L (135-145) 04/23/24 Potassium 3.9 mmol/L (3.3-5.1) 04/23/24 Chloride 112 mmol/L (96-108) H 04/23/24 Carbon Dioxide 22 mmol/L (22-29) 04/23/24 BUN 17 mg/dL (9-16) H 04/23/24 Creatinine 0.96 mg/dL (0.5-1.4) 04/23/24 Calcium 9.3 mg/dL (8.4-10.2) 04/23/24 Assessment & Plan Assessment & Plan (1) Renal cyst: Code(s): N28.1 - Cyst of kidney, acquired Category: Medical Plan Ofelia is known to have renal cyst for some time. She underwent an imaging prior to last visit which did not show any increase in size. She never had infection of the cyst, bleeding in the cyst or rupture of the cyst. It was never mentioned that she has a complex cyst. She has no family history of cystic renal disease, ESRD or renal transplantation. Her blood pressure is currently normal. She is not known to have any hematuria or proteinuria. Her serum creatinine is normal. I ordered follow up CT scan . Answered all questions. Orders: Orders CT abdomen w IV con Today N28.1 - Cyst of kidney, acquired Coding Level of Care Code Est Pt Level 4 (53671) Diagnoses Renal cyst N28.1
[2024-06-26 15:20] VITALS: BP 124/90; BMI 33.4
== END 2024-06-26 15:34 | disposition home or self-care (01) ==
LOC: HO.HKA 15:17
PROVIDERS: PCP Internal Medicine; Visit Provider Internal Medicine Nephrology
DX: N28.1 Cyst of kidney, acquired (principal)
CPT/HCPCS: 99214

== ENCOUNTER 2024-09-01 06:43 | Outpatient (REF) | payer OTHER, SELFPAY ==
--- NOTE | ~2024-09-01 | CT_ITS ---
CLINICAL HISTORY: N28.1 - Cyst of kidney, acquired CT abdomen with contrast Comparison: 04/25/2023 ultrasound Findings: No consolidation or effusion. Small hiatal hernia. Administered oral contrast in the visualized distal thoracic esophagus. Query GE reflux. Liver, gallbladder, pancreas (pancreatic tail not seen and may be congenitally absent or severely atrophied), and adrenals are unremarkable. Indeterminate 13 mm hypodense right superior polar renal lesion with an average Hounsfield unit of 32 likely corresponding to the 15 mm non-cystic upper polar mass seen on the prior CT. Two smaller more distal too small to characterize right renal hypodensities. No hydronephrosis or urinary tract stone. A few tiny calcified splenic granulomas. Small uncomplicated umbilical hernia. Minimal focal atherosclerotic aortic calcification. Small duodenal diverticulum. No bowel obstruction. No acute fracture. IMPRESSION: Nonprogressive, indeterminate 13 mm hypodense right superior polar renal lesion corresponding to the 15 mm non-cystic upper polar mass seen on the prior CT. Finding could be re-evaluated with ultrasound or renal protocol CT/MRI in approximately 6 months. Small hiatal hernia. Administered oral contrast in the visualized distal thoracic esophagus. Query GE reflux. This document has been electronically signed by: Maria Elena Fountain MD on 09/02/2024 11:37:45
[2024-09-01] MEDS: iohexoL 350 MG/ML 100 ML INFUS..BTL IV (08:48)
[2024-09-01] MEDS: Barium Sulfate Oral (Mocha) 450 ML ORAL.SUSP PO (08:49)
== END 2024-09-01 06:44 | disposition home or self-care (01) ==
LOC: HO.CT 06:43
PROVIDERS: Absent Provider Nurse Practitioner Adult Health; PCP Internal Medicine; Visit Provider Internal Medicine Nephrology
DX: N28.1 Cyst of kidney, acquired (principal)
CPT/HCPCS: 74160; Q9967

== ENCOUNTER → 2024-09-01 06:48 | Outpatient (BNV) | payer OTHER, SELFPAY | PROVIDERS: Absent Provider Nurse Practitioner Adult Health; PCP Internal Medicine; Visit Provider Radiology Diagnostic Radiology | DX: N28.89 Other specified disorders of kidney and ureter (principal); K44.9 Diaphragmatic hernia without obstruction or gangrene | CPT/HCPCS: 74160 ==

== ENCOUNTER 2024-10-30 15:00 | Outpatient (RCR) | payer OTHER, SELFPAY | END 2024-12-04 09:36 | disposition home or self-care (01) | LOC: HO.PT 15:00 | PROVIDERS: PCP Nurse Practitioner Adult Health; Visit Provider Nurse Practitioner Adult Health | DX: M54.50 Low back pain, unspecified (principal) | CPT/HCPCS: 97110; 97140; 97161; 97530 ==

== ENCOUNTER 2025-02-08 08:51 | Outpatient (AMB) | payer BC, SELFPAY ==
[2025-02-08 08:59] VITALS: BP 138/100; PULSE 91; TEMP 36.8; O2SAT 97; BMI 34.8
--- NOTE | 2025-02-08 08:59 | MHC.OFFWIV ---
Intake Vital Signs 02/08/25 08:59 Height 5 ft 1 in Weight 184 lb BMI 34.8 BP 138/100 H Blood Pressure Location Rt brachial Position Sitting Pulse 91 Pulse Source Pulse Oximeter Temp 98.2 F Temp Source Oral Pulse Oximetry (%) 97 Oxygen Delivery Method Room Air Intake Visit Reasons: [employer]-sore throat, swollen glands, headaches Patient Tobacco Use Status: Former Tobacco user Allergies penicillin V Allergy (Unknown, Verified 02/08/25 09:06) Unknown Sulfa (Sulfonamide Antibiotics) Allergy (Unknown, Verified 02/08/25 09:06) Unknown tetracycline Allergy (Unknown, Verified 02/08/25 09:06) Unknown Amoxil Allergy (Unknown, Uncoded 04/17/24 09:48) Unknown Clindamycin HCl Allergy (Unknown, Uncoded 04/17/24 09:48) Unknown Erythromycin Allergy (Unknown, Uncoded 04/17/24 09:48) Unknown Transderm-Scop Allergy (Unknown, Uncoded 04/17/24 09:48) Unknown Do you need a note to return to daycare/school/sports/work: No HPI HPI Comments History of Present Illness Details 49 y/o Female Patient who presents to the walk in clinic with c/o Swollen Lymph Node left below chin for 4 days. Pt c/o Sore-throat and headaches. Denies fevers, chills, Nausea or vomiting. [facility] Medical History (Updated 02/08/25 @ 09:56 by Ana Lilia Brush NP) Lymphadenopathy Mild sleep apnea Insomnia Anxiety IBS (irritable bowel syndrome) Hyperlipidemia Fibromyalgia Elevated blood pressure reading Surgical History History of appendectomy History of tubal ligation Family History Father CKD (chronic kidney disease) Prostate cancer Social History Alcohol intake: current Alcohol intake frequency: does not drink Comment: on occasional Patient Tobacco Use Status: Former Tobacco user Female Reproductive History Menstrual Age of Menarche: 16 Review of Systems Const All systems reviewed & are unremarkable except as noted in HPI and below Physical Exam Vital Signs: Last Vital Signs Temp 98.2 F 02/08/25 08:59 Pulse 91 02/08/25 08:59 BP 138/100 H 02/08/25 08:59 Pulse Ox 97 02/08/25 08:59 Oxygen Delivery Method Room Air 02/08/25 08:59 BMI result Body Mass Index 34.8 Const General: no acute distress Nutritional Appearance: well nourished Orientation/consciousness: patient oriented x3 HEENT Head: Yes normocephalic Ears: external ears normal and TM's normal bilaterally General nose exam: Normal external nose present Face and sinus: Yes sinuses nontender Mouth: moist mucous membranes Throat: Yes uvula midline Neck Neck: Yes trachea midline Lymphatic: lymphadenopathy (Left Submental Node - TTP) Resp Effort & Inspection: normal respiratory effort Cardio Heart sounds: S1 normal heart sound present and S2 normal heart sound present Neuro General: patient oriented x3 Assessment & Plan Assessment & Plan (1) Lymphadenopathy: Code(s): R59.1 - Generalized enlarged lymph nodes Plan: Probably URI Apply Ice/Heat NSAIDs for pain relief. Coding Level of Care Code New Pt Level 4 (02921) Diagnoses Lymphadenopathy R59.1 Time Spent (min) 20
== END 2025-02-08 09:33 | disposition home or self-care (01) ==
PROVIDERS: PCP Nurse Practitioner Adult Health; Visit Provider Nurse Practitioner Family
DX: Z13.9 Encounter for screening, unspecified (principal); R59.1 Generalized enlarged lymph nodes

== ENCOUNTER → 2025-02-08 08:51 | Outpatient (BNVA) | payer BC, SELFPAY | PROVIDERS: PCP Nurse Practitioner Adult Health; Visit Provider Nurse Practitioner Family | DX: R59.1 Generalized enlarged lymph nodes (principal); J02.9 Acute pharyngitis, unspecified; R51.9 Headache, unspecified | CPT/HCPCS: 87880 ==

== ENCOUNTER → 2025-04-05 07:40 | Outpatient (REF) | payer BC, SELFPAY ==
--- NOTE | 2025-04-05 | CA_ITS ---
Acquisition Time: 2025-04-05 08:02:00 Total Exercise Time: 00:10:30 Test Indications: CP Medications: SEE H&P Protocol: FREDRICK Max HR: 139 BPM 81% of Pred: 170 BPM Max BP: 182/78 mmHG Max Work Load: 10.8 METS Exercise stress test with exercise 10 mins 30 secs of Fredrick Protocol, achieving 81% MPHR, with reports of SOB, no chest pain, without any arrythmias, with normotensive response to exercise. Without any EKG changes meeting criteria for ischemia. In recovery, breathing improved and pt feeling back to baseline. Test reviewed with Dr. Cortez. Referred By: Gilbert Membreno Electronically Signed By: Elia Montoya
== END ==
LOC: HO.CARD 07:40
PROVIDERS: PCP Internal Medicine; Visit Provider Internal Medicine
DX: R07.9 Chest pain, unspecified (principal)
CPT/HCPCS: 93017

== ENCOUNTER → 2025-04-05 08:02 | Outpatient (BNV) | payer BC, SELFPAY | PROVIDERS: PCP Internal Medicine | DX: R06.02 Shortness of breath (principal) | CPT/HCPCS: 93016; 93018 ==